=== PATIENT | female | born 1960 | race American Indian/Alaskan Native ===

== ENCOUNTER 2018-12-23 05:08 | Inpatient (IN) | payer MEDICARE ==
--- NOTE | 2018-12-23 06:46 | Emergency Department Report ---
HPI - General Chief Complaint: Medical Clearance Time Seen by Provider: 12/23/18 06:34 - [facility] HPI: Room 24 The patient is a 58-year-old female presented with a chief complaint of tracheostomy tube dislodgment. This morning at 04:00 the patient coughed and her trach came out. Subsequently the patient brought to the ED. Respiratory therapy was called and unable to replace the tracheostomy. Patient denies complaints currently. Patient denies history of fever. Patient states she had a tracheostomy 2 years ago after a CVA Location: Trach Duration: [See above] Quality: [See above] Severity: [See above] Modifying factors: [see above] Context: [see above] Mode of transportation: [not driving] ED Past Medical Hx - Past Medical History Hx Hypertension: Yes Hx CVA: Yes Hx Diabetes: Yes Hx Renal Disease: Yes (Dialysis) - Surgical History Additional Surgical History: Tracheostomy, left AKA - Family History Family history: no significant - Social History Smoking Status: Unknown if ever smoked Substance Use Type: None ED Review of Systems ROS: Stated complaint: REPLACE TRACH Other details as noted in HPI Constitutional: no symptoms reported Eyes: denies: eye pain ENT: denies: throat pain Respiratory: other (tracheostomy tube dislodgment) Cardiovascular: denies: chest pain Endocrine: no symptoms reported Gastrointestinal: denies: abdominal pain Genitourinary: denies: dysuria Musculoskeletal: denies: back pain Neurological: denies: headache Physical Exam - Physical Exam Vital Signs: Vital Signs 12/23/18 05:46 Temperature 97.8 F Pulse Rate 82 Respiratory 14 Rate Blood Pressure 170/82 O2 Sat by Pulse 98 Oximetry Physical Exam: GENERAL: The patient is well-developed well-nourished female lying on stretcher not appearing to be in acute distress. [] HEENT: Normocephalic. Atraumatic. Extraocular motions are intact. Patient has moist mucous membranes. NECK: Supple. Tracheostomy stoma present CHEST/LUNGS: Clear to auscultation. There is no respiratory distress noted. HEART/CARDIOVASCULAR: Regular. There is no tachycardia. There is no gallop rub or murmur. ABDOMEN: Abdomen is soft, nontender. Patient has normal bowel sounds. There is no abdominal distention. SKIN: There is no rash. There is no edema. There is no diaphoresis. NEURO: The patient is awake, alert, and oriented. The patient is cooperative. The patient has normal speech MUSCULOSKELETAL: There is no evidence of acute injury. ED Course Vital Signs 12/23/18 05:46 Temperature 97.8 F Pulse Rate 82 Respiratory 14 Rate Blood Pressure 170/82 O2 Sat by Pulse 98 Oximetry ED Medical Decision Making - Lab Data Result diagrams: 12/23/18 07:00 12/23/18 07:00 Laboratory Tests 12/23/18 12/23/18 07:00 07:00 WBC 11.0 RBC 3.54 L Hgb 9.3 L Hct 27.2 L MCV 77 L MCH 26 L MCHC 34 RDW 18.8 H Plt Count 216 Lymph % (Auto) 27.2 [place] % (Auto) 7.9 H Eos % (Auto) 1.7 Baso % (Auto) 0.8 Lymph # 3.0 [place] # 0.9 H Eos # 0.2 Baso # 0.1 Seg Neutrophils % 62.4 Seg Neutrophils # 6.8 Sodium 139 Potassium 4.9 Chloride 101.3 Carbon Dioxide 18 L Anion Gap 25 BUN 67 H Creatinine 6.6 H Estimated GFR 8 BUN/Creatinine Ratio 10 Glucose 97 Calcium 9.2 - Radiology Data Radiology results: report reviewed (chest x-ray), image reviewed (chest x-ray) interpreted by me: Chest x-ray-left lung peripheral opacity. No pneumothorax [facility] [address] [place] [address] XRay Report Signed Patient: BIJU CEBALLOS MR#: [id number] 35 : 1960 Acct:[id number] Age/Sex: 58 / F ADM Date: 12/23/18 Loc: ED Attending Dr: Ordering Physician: MANASA WYATT MD Date of Service: 12/23/18 Procedure(s): XR chest 1V ap Accession Number(s): [id number] cc: MAANSA WYATT MD Fluoro Time In Minutes: PROCEDURE: XR CHEST 1V AP TECHNIQUE: AP portable chest radiograph HISTORY: cough COMPARISONS: None FINDINGS: Right chest central line terminates near the cavoatrial junction. Patient is rotated. No mediastinal shift. Cardiomegaly. Overlying sternotomy wires. No pneumothorax. Peripheral left lung opacity/pleural thickening. Blunting the left costophrenic angle. IMPRESSION: Focal left lung airspace disease with pleural effusion. PA and lateral chest radiographic follow-up to resolution is suggested. This document is electronically signed by Valentín John MD., December 23 2018 07:15:55 AM ET Transcribed By: PARKER Dictated By: VALENTÍN JOHN MD Electronically Authenticated By: VALENTÍN JOHN MD Signed Date/Time: 12/23/18716 DD/ 4 TD/TT: 12/23/18654 - Differential Diagnosis tracheostomy dislodgment Critical care attestation.: If time is entered above; I have spent that time in minutes in the direct care of this critically ill patient, excluding procedure time. ED Disposition Clinical Impression: Complication of tracheostomy tube, End stage renal disease Disposition: 09 OP ADMIT IP TO THIS HOSP Is pt being admited?: Yes Does the pt Need Aspirin: No Condition: Fair Referrals: KEDAR TSE MD [Primary Care Provider] - 3-5 Days Time of Disposition: 07:36 (hospitalist paged)
[2018-12-23 07:13] LABS: Basophils # (Auto) 0.1 K/mm3 (0.0-0.1); Basophils % (Auto) 0.8 % (0.0-1.8); Eosinophils # (Auto) 0.2 K/mm3 (0.0-0.4); Eosinophils % (Auto) 1.7 % (0.0-4.3); Hematocrit 27.2 % (30.3-42.9); Hemoglobin 9.3 gm/dl (10.1-14.3); Lymphocytes % (Auto) 27.2 % (13.4-35.0); Mean Corpuscular HGB Conc 34 % (30-34); Mean Corpuscular Volume 77 fl (79-97); Monocytes # (Auto) 0.9 K/mm3 (0.0-0.8); Monocytes % (Auto) 7.9 % (0.0-7.3); Platelet Count 216 K/mm3 (140-440); Red Blood Count 3.54 M/mm3 (3.65-5.03); Red Cell Distribution Width 18.8 % (13.2-15.2)
--- NOTE | 2018-12-23 07:17 | XRay Report ---
PROCEDURE: XR CHEST 1V AP TECHNIQUE: AP portable chest radiograph HISTORY: cough COMPARISONS: None FINDINGS: Right chest central line terminates near the cavoatrial junction. Patient is rotated. No mediastinal shift. Cardiomegaly. Overlying sternotomy wires. No pneumothorax. Peripheral left lung opacity/pleura l thickening. Blunting the left costophrenic angle. IMPRESSION: Focal left lung airspace disease with pleural effusion. PA and lateral chest radiographic follow-up t o resolution is suggested. This document is electronically signed by Valentín Jean MD., December 23 2018 07:15:55 AM ET
[2018-12-23 07:28] LABS: Calcium 9.2 mg/dL (8.4-10.2)
--- NOTE | 2018-12-23 09:35 | History and Physical Report ---
History of Present Illness Date of examination: 12/23/18 Date of admission: 12/23/18 Chief complaint: Chief complaint: Tracheostomy tube dislodgment while cleaning. History of present illness: 58 y/o femALE was cleaning tracheostomy today and the tracheostomy dislodged.No resp distress.Past medical history significant for hypertension, controlled, diabetes mellitus type 2 controlled with complications status post left fttaf-afl-[id number] amputation, previous CVA, previous history of pneumonia status post tracheostomy placement, end-stage renal disease on dialysis via a right internal jugular tunnel dialysis access on Wednesday and Wednesday previously on dialysis in [place] recently moved to [facility] to live with her niece. Not in any distress with good airway protection. She denies any orthopnea PND she denies any lower extremity swelling .She has been on dialysis for over 2 years she does not have an arteriovenous graft or fistula yet. She still makes some urine reports she is compliant with dialysis sessions denies any headache Past Medical History Hx Hypertension: Yes Hx CVA: Yes Hx Diabetes: Yes Hx Renal Disease: Yes (Dialysis) Surgical History Additional Surgical History: Tracheostomy, left AKA Family History Family history: no significant Social History Smoking Status: Unknown if ever smoked Substance Use Type: None Review of Systems Constitutional: no weight loss, no weight gain, no fever, no chills Ears, nose, mouth and throat: other (previous tracheostomy), no ear pain, no epistaxis, no voice changes Cardiovascular: no chest pain, no orthopnea Respiratory: cough Gastrointestinal: no abdominal pain, no nausea, no vomiting Musculoskeletal: prior amputations, other ([id number]-[id number] amputation), no hot joints Integumentary: no rash Neurological: no head injury, no transient paralysis Psychiatric: no anxiety, no memory loss Endocrine: no cold intolerance, no heat intolerance Hematologic/Lymphatic: no easy bruising, no easy bleeding, no lymphadenopathy Allergic/Immunologic: no urticaria Medications and Allergies Allergies Allergy/AdvReac Type Severity Reaction Status Date / Time clonidine Allergy Unknown Verified 12/23/18 09:44 Home Medications Medication Instructions Recorded Confirmed Last Taken Type Atorvastatin Calcium 80 mg PO QHS 12/23/18 12/23/18 Unknown History Carvedilol [Coreg] 25 mg PO BID 12/23/18 12/23/18 Unknown History Gabapentin [Neurontin] 100 mg PO QHS 12/23/18 12/23/18 Unknown History Losartan [Cozaar] 50 mg PO QDAY 12/23/18 12/23/18 Unknown History Vit B Comp No.3/Folic/C/Biotin 1 each PO DAILY 12/23/18 12/23/18 Unknown History [Nephro-Talya Rx Tablet] amLODIPine [Norvasc] 5 mg PO DAILY 12/23/18 12/23/18 Unknown History hydrALAZINE [Apresoline TAB] 100 mg PO BID 12/23/18 12/23/18 Unknown History levETIRAcetam [Levetiracetam] 750 mg PO QWEEK 12/23/18 12/23/18 Unknown History Exam - Constitutional Vitals: Temp Pulse Resp BP Pulse Ox 97.8 F 82 14 170/82 98 12/23/18 05:46 12/23/18 05:46 12/23/18 05:46 12/23/18 05:46 12/23/18 05:46 General appearance: Present: no acute distress, well-nourished - EENT Eyes: Present: PERRL ENT: hearing intact, clear oral mucosa - Neck Neck: Present: supple, normal ROM - Respiratory Respiratory effort: normal Respiratory: bilateral: CTA - Cardiovascular Heart rate: 78 Rhythm: regular Heart Sounds: Present: S1 & S2. Absent: rub, click - Extremities Extremities: no ischemia, pulses intact, pulses symmetrical, No edema Extremity abnormal: other (L AKA ) Peripheral Pulses: within normal limits - Abdominal General gastrointestinal: Present: soft, non-tender, non-distended, normal bowel sounds Female genitourinary: Present: normal - Integumentary Integumentary: Present: clear, warm, dry - Musculoskeletal Musculoskeletal: gait normal, strength equal bilaterally - Psychiatric Psychiatric: appropriate mood/affect, intact judgment & insight - Neurologic Neurologic: CNII-XII intact, moves all extremities - Allied Health Allied health notes reviewed: nursing, case management Results - Labs CBC & Chem 7: 12/24/18 04:18 12/24/18 04:18 Labs: Laboratory Last Values WBC 11.0 K/mm3 (4.5-11.0) 12/23/18 07:00 RBC 3.54 M/mm3 (3.65-5.03) L 12/23/18 07:00 Hgb 9.3 gm/dl (10.1-14.3) L 12/23/18 07:00 Hct 27.2 % (30.3-42.9) L 12/23/18 07:00 MCV 77 fl (79-97) L 12/23/18 07:00 MCH 26 pg (28-32) L 12/23/18 07:00 MCHC 34 % (30-34) 12/23/18 07:00 RDW 18.8 % (13.2-15.2) H 12/23/18 07:00 Plt Count 216 K/mm3 (140-440) 12/23/18 07:00 Lymph % (Auto) 27.2 % (13.4-35.0) 12/23/18 07:00 [place] % (Auto) 7.9 % (0.0-7.3) H 12/23/18 07:00 Eos % (Auto) 1.7 % (0.0-4.3) 12/23/18 07:00 Baso % (Auto) 0.8 % (0.0-1.8) 12/23/18 07:00 Lymph # 3.0 K/mm3 (1.2-5.4) 12/23/18 07:00 [place] # 0.9 K/mm3 (0.0-0.8) H 12/23/18 07:00 Eos # 0.2 K/mm3 (0.0-0.4) 12/23/18 07:00 Baso # 0.1 K/mm3 (0.0-0.1) 12/23/18 07:00 Seg Neutrophils % 62.4 % (40.0-70.0) 12/23/18 07:00 Seg Neutrophils # 6.8 K/mm3 (1.8-7.7) 12/23/18 07:00 Sodium 139 mmol/L (137-145) 12/23/18 07:00 Potassium 4.9 mmol/L (3.6-5.0) 12/23/18 07:00 Chloride 101.3 mmol/L (98-107) 12/23/18 07:00 Carbon Dioxide 18 mmol/L (22-30) L 12/23/18 07:00 Anion Gap 25 mmol/L 12/23/18 07:00 BUN 67 mg/dL (7-17) H 12/23/18 07:00 Creatinine 6.6 mg/dL (0.7-1.2) H 12/23/18 07:00 Estimated GFR 8 ml/min 12/23/18 07:00 BUN/Creatinine Ratio 10 % 12/23/18 07:00 Glucose 97 mg/dL (65-100) 12/23/18 07:00 Calcium 9.2 mg/dL (8.4-10.2) 12/23/18 07:00 Short CBC 12/24/18 Range/Units 04:18 WBC 11.5 H (4.5-11.0) K/mm3 Hgb 9.6 L (10.1-14.3) gm/dl Hct 28.0 L (30.3-42.9) % Plt Count 244 (140-440) K/mm3 BMP 12/24/18 04:18 Sodium 140 Potassium 3.9 D Chloride 99.7 Carbon Dioxide 25 D BUN 30 H Creatinine 4.3 H Glucose 97 Calcium 9.6 Liver Function 12/24/18 Range/Units 04:18 Total Bilirubin 0.30 (0.1-1.2) mg/dL AST 21 (5-40) units/L ALT 23 (7-56) units/L Alkaline Phosphatase 164 H (35-129) units/L Albumin 3.8 L (3.9-5) g/dL - Imaging and Cardiology Chest x-ray: report reviewed Imaging and Cardiology: CXR IMPRESSION: Focal left lung airspace disease with pleural effusion. PA and lateral chest radiographic follow-up to resolution is suggested. Assessment and Plan Advance Directives: Yes (full code) VTE prophylaxis?: Chemical Plan of care discussed with patient/family: Yes - Patient Problems (1) Left lower lobe pneumonia Current Visit: Yes Status: Acute Plan to address problem: IV antibiotics ceftriaxone and Zithromax (2) Complication of tracheostomy tube Current Visit: Yes Status: Acute Plan to address problem: Patient may need closure We will get Surgery consult (3) End stage renal disease Current Visit: Yes Status: Chronic Plan to address problem: Continue hemodialysis (4) Hypertension Current Visit: Yes Status: Chronic Qualifiers: Hypertension type: essential hypertension Qualified Code(s): I10 - Essential (primary) hypertension Plan to address problem: Continue antihypertensives (5) T2DM (type 2 diabetes mellitus) Current Visit: Yes Status: Chronic 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
[2018-12-23] MEDS ORDERED: DILAUDID IV PRN (09:36)
[2018-12-23] MEDS ORDERED: SODIUM CHLORIDE FLUSH SYRINGE 10 ML IV PRN (09:36)
[2018-12-23] MEDS ORDERED: ZOFRAN IV PRN (09:36)
[2018-12-23] MEDS ORDERED: TYLENOL PO PRN (11:00)
[2018-12-23] MEDS ORDERED: LEVAQUIN 500MG/100ML 500 MG/100 ML BAG IV SCH (11:00)
[2018-12-23] MEDS ORDERED: PROVENTIL IH PRN (11:00)
[2018-12-23] MEDS: PEPCID PO SCH ×2 (11:28→22:52)
[2018-12-23] MEDS: SODIUM CHLORIDE FLUSH SYRINGE 10 ML IV SCH ×2 (11:28→22:53)
[2018-12-23] MEDS ORDERED: PEPCID ONE (11:33)
[2018-12-23] MEDS ORDERED: LEVAQUIN 500MG/100ML 500 MG/100 ML BAG IV ONE (11:33)
--- NOTE | 2018-12-23 12:32 | Consultation ---
History of Present Illness Consult date: 12/23/18 Requesting physician: ENRIQUE PELAYO Reason for consult: other (Tracheostomy Tube Dislodgement) History of present illness: PULMONARY/CCM CONSULT NOTE (Full dictation # [id number]) Please see dictated notes for full details Medications and Allergies Allergies Allergy/AdvReac Type Severity Reaction Status Date / Time clonidine Allergy Unknown Verified 12/23/18 09:44 Home Medications Medication Instructions Recorded Confirmed Last Taken Type Atorvastatin Calcium 80 mg PO QHS 12/23/18 12/23/18 Unknown History Carvedilol [Coreg] 25 mg PO BID 12/23/18 12/23/18 Unknown History Gabapentin [Neurontin] 100 mg PO QHS 12/23/18 12/23/18 Unknown History Losartan [Cozaar] 50 mg PO QDAY 12/23/18 12/23/18 Unknown History Vit B Comp No.3/Folic/C/Biotin 1 each PO DAILY 12/23/18 12/23/18 Unknown History [Nephro-Talya Rx Tablet] amLODIPine [Norvasc] 5 mg PO DAILY 12/23/18 12/23/18 Unknown History hydrALAZINE [Apresoline TAB] 100 mg PO BID 12/23/18 12/23/18 Unknown History levETIRAcetam [Levetiracetam] 750 mg PO QWEEK 12/23/18 12/23/18 Unknown History Active Meds: Active Medications Acetaminophen (Tylenol) 650 mg PO Q4H PRN PRN Reason: Pain MILD(1-3)/Fever >100.5/REYES Albuterol (Proventil) 2.5 mg IH Q3HRT PRN PRN Reason: Shortness Of Breath Albuterol/Ipratropium (Duoneb *Not For Prn Use*) 1 ampul IH QIDRT JUSTIN Famotidine (Pepcid) 10 mg PO BID JUSTIN Last Admin: 12/23/18 11:28 Dose: 10 mg Documented by: Heparin Sodium (Porcine) (Heparin) 5,000 unit SUB-Q Q12HR JUSTIN Hydromorphone HCl (Dilaudid) 0.5 mg IV Q3H PRN PRN Reason: Pain , Severe (7-10) Levofloxacin/Dextrose (Levaquin 500mg/100ml) 500 mg in 100 mls @ 100 mls/hr IV Q48HR JUSTIN; Protocol Last Admin: 12/23/18 11:30 Dose: 100 mls/hr Documented by: Ondansetron HCl (Zofran) 4 mg IV Q8H PRN PRN Reason: Nausea And Vomiting Sodium Chloride (Sodium Chloride Flush Syringe 10 Ml) 10 ml IV BID [facility] Last Admin: 12/23/18 11:28 Dose: 10 ml Documented by: Sodium Chloride (Sodium Chloride Flush Syringe 10 Ml) 10 ml IV PRN PRN PRN Reason: LINE FLUSH Physical Examination Vital signs: Vital Signs Temp Pulse Resp BP Pulse Ox 97.8 F 82 14 170/82 98 12/23/18 05:46 12/23/18 05:46 12/23/18 05:46 12/23/18 05:46 12/23/18 05:46 Results - Laboratory Findings CBC and BMP: 12/24/18 04:18 12/24/18 04:18 Abnormal lab findings: Abnormal Labs 12/23/18 12/23/18 07:00 07:00 RBC 3.54 L Hgb 9.3 L Hct 27.2 L MCV 77 L MCH 26 L RDW 18.8 H [place] % (Auto) 7.9 H [place] # 0.9 H Carbon Dioxide 18 L BUN 67 H Creatinine 6.6 H
[2018-12-23] MEDS: HEPARIN SUB-Q SCH ×2 (13:00→22:52)
[2018-12-23] MEDS ORDERED: NACL 0.9% 100 ML IV PRN (13:28)
[2018-12-23] MEDS: DUONEB *Not for PRN Use IH SCH ×3 (13:32→20:41)
--- NOTE | 2018-12-23 18:11 | Consultation ---
History of Present Illness - History of Present Illness 58-year-old lady with medical history significant for hypertension, controlled, diabetes mellitus type 2 controlled with complications status post left [id number] amputation, previous CVA, previous history of pneumonia status post tracheostomy placement, end-stage renal disease on dialysis via a right internal jugular tunnel dialysis access on Wednesday and Wednesday previously on dialysis in [place] recently moved to [facility] to live with her niece. She tells me her new dialysis unit is [facility] dialysis. She was cleaning tracheostomy today and the tracheostomy dislodged. She was seen in the emergency room was not in any distress with good airway protection. She denies any orthopnea PND she denies any lower extremity swelling she has been on dialysis for over 2 years she does not have an arteriovenous graft or fistula yet. She still makes some urine reports she is compliant with dialysis sessions denies any headache denies. From any orifice denies any nausea vomiting diarrhea and denies any abdominal pain denies any cough denies any chest pain she denies any fevers or chills Medications and Allergies Allergies Allergy/AdvReac Type Severity Reaction Status Date / Time clonidine Allergy Unknown Verified 12/23/18 09:44 Home Medications Medication Instructions Recorded Confirmed Last Taken Type Atorvastatin Calcium 80 mg PO QHS 12/23/18 12/23/18 Unknown History Carvedilol [Coreg] 25 mg PO BID 12/23/18 12/23/18 Unknown History Gabapentin [Neurontin] 100 mg PO QHS 12/23/18 12/23/18 Unknown History Losartan [Cozaar] 50 mg PO QDAY 12/23/18 12/23/18 Unknown History Vit B Comp No.3/Folic/C/Biotin 1 each PO DAILY 12/23/18 12/23/18 Unknown History [Nephro-Talya Rx Tablet] amLODIPine [Norvasc] 5 mg PO DAILY 12/23/18 12/23/18 Unknown History hydrALAZINE [Apresoline TAB] 100 mg PO BID 12/23/18 12/23/18 Unknown History levETIRAcetam [Levetiracetam] 750 mg PO QWEEK 12/23/18 12/23/18 Unknown History Active Meds: Active Medications Acetaminophen (Tylenol) 650 mg PO Q4H PRN PRN Reason: Pain MILD(1-3)/Fever >100.5/REYES Albuterol (Proventil) 2.5 mg IH Q3HRT PRN PRN Reason: Shortness Of Breath Albuterol/Ipratropium (Duoneb *Not For Prn Use*) 1 ampul IH QIDRT [facility] Last Admin: 12/23/18 17:35 Dose: 1 ampul Documented by: Famotidine (Pepcid) 10 mg PO BID [facility] Last Admin: 12/23/18 11:28 Dose: 10 mg Documented by: Heparin Sodium (Porcine) (Heparin) 5,000 unit SUB-Q Q12HR [facility] Last Admin: 12/23/18 13:00 Dose: Not Given Documented by: Hydromorphone HCl (Dilaudid) 0.5 mg IV Q3H PRN PRN Reason: Pain , Severe (7-10) Levofloxacin/Dextrose (Levaquin 500mg/100ml) 500 mg in 100 mls @ 100 mls/hr IV Q48HR [facility]; Protocol Last Admin: 12/23/18 11:30 Dose: 100 mls/hr Documented by: Sodium Chloride (Nacl 0.9%) 100 mls @ 999 mls/hr IV ANALISA PRN PRN Reason: Hypotension Ondansetron HCl (Zofran) 4 mg IV Q8H PRN PRN Reason: Nausea And Vomiting Sodium Chloride (Sodium Chloride Flush Syringe 10 Ml) 10 ml IV BID [facility] Last Admin: 12/23/18 11:28 Dose: 10 ml Documented by: Sodium Chloride (Sodium Chloride Flush Syringe 10 Ml) 10 ml IV PRN PRN PRN Reason: LINE FLUSH Review of Systems Constitutional: no weight loss, no weight gain, no fever, no chills Ears, nose, mouth and throat: other (previous tracheostomy), no ear pain, no epistaxis, no voice changes Cardiovascular: no chest pain, no orthopnea Respiratory: cough Gastrointestinal: no abdominal pain, no nausea, no vomiting Musculoskeletal: prior amputations, other (ilznh-uch-lddg amputation), no hot joints Integumentary: no rash Neurological: no head injury, no transient paralysis Psychiatric: no anxiety, no memory loss Endocrine: no cold intolerance, no heat intolerance Hematologic/Lymphatic: no easy bruising, no easy bleeding, no lymphadenopathy Allergic/Immunologic: no urticaria Exam - Vital Signs Vital signs: Vital Signs Temp Pulse Resp BP Pulse Ox 97.8 F 82 14 170/82 98 12/23/18 05:46 12/23/18 05:46 12/23/18 05:46 12/23/18 05:46 12/23/18 05:46 - General Appearance General appearance: well-developed, well-nourished EENT: ATNC, PERRL Neck: Present: neck supple, Other (midline opening in neck with clean dressing ) Respiratory: Clear to Ascultation Heart: S1S2 Gastrointestinal: Present: normal, normoactive bowel sounds Integumentary: no rash Neurologic: alert and oriented x3, CN 3-12 intact Musculoskeletal: Present: other (left AKA) Psychiatric: mood/affect appropriate Results - Lab Results 12/23/18 07:00 12/23/18 07:00 Most recent lab results Calcium 9.2 mg/dL (8.4-10.2) 12/23/18 07:00 - Image Kidney/bladder ultrasound: image reviewed (reviewed cxr with interstitial markings dialysis catheter) Assessment and Plan - Patient Problems (1) End stage renal disease Current Visit: Yes Status: Acute Plan to address problem: End stage renal disease Access : Right IJ dialysis catheter -UF goal : 2-3L 2k/2.5ca/35hco3 bath. (2) Complication of tracheostomy tube Current Visit: Yes Status: Acute Plan to address problem: Dislodged tracheostomy tube Appreciate pulmonary evaluation Does not appear dyspneic, she is able to talk in complete sentences (3) Anemia in chronic kidney disease (CKD) Current Visit: Yes Status: Acute Qualifiers: Chronic kidney disease stage: on chronic dialysis Qualified Code(s): N18.6 - End stage renal disease; D63.1 - Anemia in chronic kidney disease; Z99.2 - Dependence on renal dialysis Plan to address problem: Moderate anemia hemoglobin is 9.2, Etiology secondary to chronic kidney disease We'll give Epogen 20,000 units Monitor CBC (4) Hypertension Current Visit: Yes Status: Acute Plan to address problem: Hypertension uncontrolled We'll optimize volume status with dialysis Continue oral medications
[2018-12-23] MEDS ORDERED: PROCRIT IV SCH (19:00)
[2018-12-24 04:47] LABS: Basophils # (Auto) 0.1 K/mm3 (0.0-0.1); Basophils % (Auto) 0.7 % (0.0-1.8); Eosinophils # (Auto) 0.1 K/mm3 (0.0-0.4); Eosinophils % (Auto) 0.8 % (0.0-4.3); Hemoglobin 9.6 gm/dl (10.1-14.3); Lymphocytes % (Auto) 17.8 % (13.4-35.0); Mean Corpuscular HGB Conc 34 % (30-34); Mean Corpuscular Volume 76 fl (79-97); Monocytes # (Auto) 1.1 K/mm3 (0.0-0.8); Monocytes % (Auto) 9.2 % (0.0-7.3); Platelet Count 244 K/mm3 (140-440); Red Cell Distribution Width 18.3 % (13.2-15.2)
[2018-12-24 05:09] LABS: Albumin 3.8 g/dL (3.9-5); Calcium 9.6 mg/dL (8.4-10.2)
[2018-12-24] MEDS: DUONEB *Not for PRN Use IH SCH ×4 (09:10→19:29)
--- NOTE | 2018-12-24 09:39 | Progress Note ---
Subjective Interval history: Patient was seen today for follow-up on multiple renal related issues Events of this hospitalization noted Patient denies having any chest pain pressure or shortness of breath Vitals labs intake output medications were reviewed Social history: Reviewed Allergies: Reviewed Family history: Reviewed Physical examination HEENT: Oral mucosa moist no pallor or icterus Neck: Supple no JVD Chest: Clear to auscultation anteriorly CVS: Regular rate and rhythm S1 and S2 heard Abdomen: Soft nontender no suprapubic masses no organomegaly appreciable Extremity: Dry skin less than 1+ peripheral edema Musculoskeletal: No joint effusion noted in knees and ankle Neurological: Alert awake Dermatology: No petechial rashes Psychiatry: No evidence of any agitation and aggression noted Assessment and plan End-stage renal disease: Patient is currently on maintenance hemodialysis current access is a central venous catheter, patient is visiting from [place] and has recently moved to [place], he supposed to go to [facility] an [address] patient currently does have tracheotomy Patient will continue with hemodialysis treatment 3 times per week Anemia in end-stage renal disease: To monitor and follow, erythropoietin periodically Secondary hyperparathyroidism: Periodically check phosphorus as well as PTH level Monitor dialysis related labs fluid restriction sodium restriction high-protein diet, nutritional evaluation will be helpful Status post [id number] amputation, tracheotomy creation, has had dislodged tracheostomy tube Accelerated hypertension requires better control and follow-up blood pressure is currently 168/91 with heart rate between 90-[address] on hydralazine Patient was adequately counseled and educated regarding multiple renal related issues Pertinent lab findings were discussed with patient, patient does exhibit good understanding of renal issues We'll continue to follow and make recommendation from renal standpoint Objective - Vital Signs Vital signs: Vital Signs - 12hr 12/23/18 12/23/18 12/23/18 21:45 22:00 22:15 Temperature Pulse Rate 100 H 100 H 100 H Respiratory Rate Blood Pressure 135/88 121/82 130/84 12/23/18 12/23/18 22:30 22:45 Temperature 98.4 F Pulse Rate 102 H 95 H Respiratory 18 Rate Blood Pressure 116/82 168/91 - Lab 12/24/18 04:18 12/24/18 04:18 Most recent lab results Calcium 9.6 mg/dL (8.4-10.2) 12/24/18 04:18 Medications & Allergies - Medications Allergies/Adverse Reactions: Allergies clonidine Allergy (Verified 12/23/18 09:44) Unknown Home Medications: Home Medications Medication Instructions Recorded Confirmed Last Taken Type Atorvastatin Calcium 80 mg PO QHS 12/23/18 12/23/18 Unknown History Carvedilol [Coreg] 25 mg PO BID 12/23/18 12/23/18 Unknown History Gabapentin [Neurontin] 100 mg PO QHS 12/23/18 12/23/18 Unknown History Losartan [Cozaar] 50 mg PO QDAY 12/23/18 12/23/18 Unknown History Vit B Comp No.3/Folic/C/Biotin 1 each PO DAILY 12/23/18 12/23/18 Unknown History [Nephro-Talya Rx Tablet] amLODIPine [Norvasc] 5 mg PO DAILY 12/23/18 12/23/18 Unknown History hydrALAZINE [Apresoline TAB] 100 mg PO BID 12/23/18 12/23/18 Unknown History levETIRAcetam [Levetiracetam] 750 mg PO QWEEK 12/23/18 12/23/18 Unknown History Active Medications: Generic Name Dose Route Start Last Admin Trade Name Freq PRN Reason Stop Dose Admin Acetaminophen 650 mg 12/23/18 11:00 Tylenol PO Q4H PRN Pain MILD(1-3)/Fever >100.5/REYES Albuterol 2.5 mg 12/23/18 11:00 Proventil IH Q3HRT PRN Shortness Of Breath Albuterol/Ipratropium 1 ampul 12/23/18 12:00 12/24/18 09:10 Duoneb *Not For Prn Use* IH 1 ampul QIDRT JUSTIN Administration Epoetin Aston 20,000 unit 12/23/18 19:00 12/23/18 20:19 Procrit IV 20,000 unit ANALISA JUSTIN Administration Famotidine 10 mg 12/23/18 10:00 12/23/18 22:52 Pepcid PO 10 mg BID JUSTIN Administration Heparin Sodium (Porcine) 5,000 unit 12/23/18 11:00 12/23/18 22:52 Heparin SUB-Q Not Given Q12HR JUSTIN Hydromorphone HCl 0.5 mg 12/23/18 09:36 Dilaudid IV Q3H PRN Pain , Severe (7-10) Levofloxacin/Dextrose 500 mg in 100 mls @ 100 mls/hr 12/23/18 11:00 12/23/18 11:30 Levaquin 500mg/100ml IV 100 mls/hr Q48HR JUSTIN Administration Protocol Sodium Chloride 100 mls @ 999 mls/hr 12/23/18 13:28 Nacl 0.9% IV ANALISA PRN Hypotension Ondansetron HCl 4 mg 12/23/18 09:36 Zofran IV Q8H PRN Nausea And Vomiting Sodium Chloride 10 ml 12/23/18 10:00 12/23/18 22:53 Sodium Chloride Flush Syringe 10 Ml IV 10 ml BID JUSTIN Administration Sodium Chloride 10 ml 12/23/18 09:36 Sodium Chloride Flush Syringe 10 Ml IV PRN PRN LINE FLUSH
[2018-12-24] MEDS ORDERED: APRESOLINE IV SCH (10:00)
[2018-12-24] MEDS: PEPCID PO SCH ×2 (11:44→21:48)
[2018-12-24] MEDS: SODIUM CHLORIDE FLUSH SYRINGE 10 ML IV SCH ×2 (11:51→21:49)
[2018-12-24] MEDS: HEPARIN SUB-Q SCH ×2 (12:15→21:49)
[2018-12-24] MEDS ORDERED: APRESOLINE PO SCH (13:00)
[2018-12-24] MEDS ORDERED: NORVASC PO SCH (14:00)
[2018-12-24] MEDS ORDERED: NON-FORMULARY (Vit B Comp No.3/Folic/C/Biotin [Nephro-Vite Rx Tablet] 1 EACH) PO SCH (14:00)
--- NOTE | 2018-12-24 14:43 | Progress Note ---
Assessment and Plan Chronic respiratory failure, status post tracheostomy, dislodgement. History of a cerebrovascular accident. Bilateral pulmonary infiltrates, probably pulmonary edema. Possible pneumonia. End-stage renal disease, on dialysis. Diabetes. Hypertension - continue local wound care to tarch stome - aspiration precautions - ST evaluation and advance diet as tolerated - continue bronchodilators with pulmonary hygeine per RT - continue supplemental oxygen as needed to keep O2 sats > 90% - continue empiric AB's - follow cultures and clinically for de-escalation - continue glycemic control with accuchecks and SSI for target BG 140 - 180 mg/dl - HD/UF for toxin and volume clearnce - GI & VTE prophylaxis - continue other care per attending / other consultants ... re-evaluate in am & prn Subjective Date of service: 12/24/18 Principal diagnosis: Chronic Resp failure s/p trach dislodgement; Pneumonia; ESRD on dialysis. Interval history: Patient is seen today for: Chronic respiratory failure, status post tracheostomy, dislodgement; History of a cerebrovascular accident; Bilateral pulmonary infiltrates, probably pulmonary edema; Possible pneumonia; End-stage renal disease, on dialysis. Seen and examined at bedside; 24hour events reviewed; nursing and respiratory care staff consulted; no adverse overnight events reported to me; resting peacefully in bed; feels better; No N/V/F/C; denies acute chest pains or palpitations Objective Vital Signs - 12hr 12/24/18 12/24/18 11:45 13:34 Blood Pressure 184/84 184/84 Constitutional: no acute distress, other (elderly female, normocephalic and atraumatic with mildly increased resp effort at rest) Eyes: non-icteric ENT: oropharynx moist, other (clean trach stoma) Neck: supple, no lymphadenopathy, no JVD Effort: mildly labored Ascultation: Bilateral: diminished breath sounds, rhonchi Percussion: Bilateral: not dull Cardiovascular: regular rate and rhythm Gastrointestinal: normoactive bowel sounds, soft, non-tender, non-distended Integumentary: normal Extremities: no cyanosis, pulses normal, no ischemia or petechiae Neurologic: normal mental status, non-focal exam (grossly), pupils equal and round, CN II-XII normal Psychiatric: mood appropriate, affect normal CBC and BMP: 12/24/18 04:18 12/24/18 04:18 Abnormal lab findings: Abnormal Labs 12/23/18 12/23/18 12/24/18 07:00 07:00 04:18 WBC 11.5 H RBC 3.54 L Hgb 9.3 L 9.6 L Hct 27.2 L 28.0 L MCV 77 L 76 L MCH 26 L 26 L RDW 18.8 H 18.3 H [place] % (Auto) 7.9 H 9.2 H [place] # 0.9 H 1.1 H Seg Neutrophils % 71.5 H Seg Neutrophils # 8.2 H Carbon Dioxide 18 L BUN 67 H Creatinine 6.6 H POC Glucose Alkaline Phosphatase Albumin 12/24/18 12/24/18 04:18 12:41 WBC RBC Hgb Hct MCV MCH RDW [place] % (Auto) [place] # Seg Neutrophils % Seg Neutrophils # Carbon Dioxide BUN 30 H Creatinine 4.3 H POC Glucose 127 H Alkaline Phosphatase 164 H Albumin 3.8 L Chest x-ray: image reviewed (cardiomegaly; right chest vascath) Allied health notes reviewed: nursing
--- NOTE | 2018-12-24 14:51 | Progress Note ---
Assessment and Plan - Patient Problems (1) Left lower lobe pneumonia Current Visit: Yes Status: Acute Plan to address problem: IV antibiotics ceftriaxone and Zithromax (2) Complication of tracheostomy tube Current Visit: Yes Status: Acute Plan to address problem: D/w Dr Sanders Local wound care Waiting for spontaneous closure . (3) End stage renal disease Current Visit: Yes Status: Chronic Plan to address problem: Continue hemodialysis (4) Hypertension Current Visit: Yes Status: Chronic Qualifiers: Hypertension type: essential hypertension Qualified Code(s): I10 - Essential (primary) hypertension Plan to address problem: Continue antihypertensives (5) T2DM (type 2 diabetes mellitus) Current Visit: Yes Status: Chronic Qualifiers: Diabetes mellitus nursing home insulin use: without termite control representative use Plan to address problem: Continue insulin coverage Check hemoglobin A1c (6) CVA, old, hemiparesis Current Visit: Yes Status: Chronic Plan to address problem: Supportive care (7) DVT prophylaxis Current Visit: Yes Status: Acute Plan to address problem: On heparin and GI prophylaxis (8) Discharge planning issues Current Visit: Yes Status: Acute Plan to address problem: Probable discharge tomorrow Subjective Date of service: 12/24/18 Principal diagnosis: L PNA Interval history: Doing better Objective - Constitutional Vitals: Vital Signs - 12hr 12/24/18 12/24/18 12/24/18 11:45 13:34 14:43 Temperature 98.6 F Pulse Rate 75 Respiratory 18 Rate Blood Pressure 184/84 184/84 164/73 O2 Sat by Pulse 96 Oximetry General appearance: Present: no acute distress, well-nourished - EENT Eyes: PERRL, EOM intact ENT: hearing intact, clear oral mucosa Ears: bilateral: normal - Neck Neck: supple, normal ROM - Respiratory Respiratory effort: normal Respiratory: bilateral: CTA - Breasts Breasts: normal - Cardiovascular Heart rate: 78 Rhythm: regular Heart Sounds: Present: S1 & S2. Absent: gallop, rub Extremities: pulses intact, No edema, normal color, Full ROM - Gastrointestinal General gastrointestinal: Present: soft, non-tender, non-distended, normal bowel sounds - Genitourinary Female genitourinary: normal - Integumentary Integumentary: clear, warm, dry - Musculoskeletal Musculoskeletal: 1, strength equal bilaterally - Neurologic Neurologic: moves all extremities - Psychiatric Psychiatric: memory intact, appropriate mood/affect, intact judgment & insight - Labs CBC & Chem 7: 12/24/18 04:18 12/24/18 04:18 Labs: Abnormal lab results 12/24/18 12/24/18 12/24/18 Range/Units 04:18 04:18 12:41 WBC 11.5 H (4.5-11.0) K/mm3 Hgb 9.6 L (10.1-14.3) gm/dl Hct 28.0 L (30.3-42.9) % MCV 76 L (79-97) fl MCH 26 L (28-32) pg RDW 18.3 H (13.2-15.2) % Patrick % (Auto) 9.2 H (0.0-7.3) % Patrick # 1.1 H (0.0-0.8) K/mm3 Seg Neutrophils % 71.5 H (40.0-70.0) % Seg Neutrophils # 8.2 H (1.8-7.7) K/mm3 BUN 30 H (7-17) mg/dL Creatinine 4.3 H (0.7-1.2) mg/dL POC Glucose 127 H (70-105) Alkaline Phosphatase 164 H (35-129) units/L Albumin 3.8 L (3.9-5) g/dL
[2018-12-24] MEDS: APRESOLINE PO SCH ×2 (14:54→21:48)
[2018-12-24] MEDS ORDERED: ROCEPHIN/NS 1 GM/50 ML 1 GM/50 ML BAG IV SCH (15:00)
[2018-12-24 15:09] LABS: Hepatitis B Surface Antigen Non-Reactive (Negative); Hepatitis C Virus Antibody Reactive (NonReactive)
[2018-12-24] MEDS: COREG PO SCH ×2 (17:13→21:48)
[2018-12-24] MEDS: ZITHROMAX PO SCH (17:14)
[2018-12-24] MEDS: COZAAR PO SCH (17:19)
[2018-12-24] MEDS: HumaLOG SUB-Q SCH ×2 (17:20→23:13)
[2018-12-24] MEDS ORDERED: XYLOCAINE 1% MPF 5 mL INFILTRATI ONE (17:58)
--- NOTE | 2018-12-24 21:30 | Consultation ---
PULMONARY CONSULTATION NOTE CONSULTING PHYSICIAN: Sia Lombardi MD REASON FOR CONSULTATION: Tracheostomy tube dislodgement, acute hypoxemic respiratory failure. CHIEF COMPLAINT AND HISTORY OF PRESENT ILLNESS: The patient is a 58-year-old -Samoan female with past medical history significant for tracheostomy that she states was placed about a couple of years ago after a cerebrovascular accident complicated with pneumonia. She states that in retrospect, the tracheostomy was planned to be removed in a few weeks. According to her, she does not remember the name of the physician and was trying to do that. She was brought into the Emergency Room after the patient said that the area around her trach was being cleaned by staff member. She had coughed and the trach came out. They did not know how to put it back in. By the time she came into the Emergency Room, she was found that the stoma had been closing and they were unable to replace. We are asked to assist with management. When I stopped by to see her, she was resting in bed. She denied any acute chest pain. She denied any shortness of breath, dyspnea on exertion. She stated that she had been eating meals, even when she had her tracheostomy in place, but could not tell me if they were actually kept in the trach prior to her being decannulated. With regards to tobacco use/abuse history, she denies any history of tobacco use. This really is as much of the history of presentation as I have. PAST MEDICAL HISTORY: Diabetes, hypertension, cerebrovascular accident, and history of end-stage renal disease, reportedly on dialysis. PAST SURGICAL HISTORY: She has had a tracheostomy and she has had a left [id number] amputation. MEDICATIONS: She was on at the time I stopped by to see were reviewed. Pertinent medications included the following: She was on Procrit 20,000 units IV with dialysis scheduled, Pepcid 10 mg p.o. b.i.d., heparin 5000 units subQ q.12, Dilaudid 0.5 mg IV q 3hours p.r.n. severe pain, Levaquin 500 mg IV q.48 hours, Zofran 4 mg IV q. 8 hours p.r.n. nausea and vomiting. ALLERGIES: CLONIDINE. Nature of this allergy is unknown. DIET: Well-built lady, denies acute weight loss or gain preceding few weeks to months. FAMILY AND SOCIAL HISTORY: She lives in the community. Denies alcohol, tobacco, or illicit drug use or abuse. Family history, otherwise noncontributory. REVIEW OF SYSTEMS: No loss of consciousness. No new onset seizures. No new onset focal weakness. No gross hematochezia or melena. No gross hematuria or dysuria. She denies chest pains or palpitations. She denies hematemesis, hemoptysis. No polydipsia, no polyuria. No heat or cold intolerance. Complete 13-system review of systems was obtained. Pertinent positives and/or negatives as in the body of the history above, otherwise noncontributory. PHYSICAL EXAMINATION: VITAL SIGNS: At presentation, she is afebrile, temperature 97.8 degrees Fahrenheit, pulse of 82, respiratory rate of 14, blood pressure 170/82, oxygen sats were 98%, inspired oxygen concentration was not recorded at that time. By the time I saw her, she was 97% on room air. GENERAL: She is a well-built -Samoan female, normocephalic, talking to me in full sentences without overt respiratory distress. HEAD, EYES, EARS, NOSE, AND THROAT: She is anicteric. No conjunctival erythema. Oropharynx is moist, is a Mallampati #2 oropharynx. She has a clean tracheostomy stoma that has indeed closed in the midline of the neck. No obvious bleeding or exudation around it. No thyromegaly. Grossly, no palpable lymph nodes in the supraclavicular or submandibular lymph node chains. No jugular venous distention. LUNGS: Auscultation of both lung ambrosio revealed faint inspiratory crackles in the left lower lung, in particular, no wheezing. HEART: Heart sounds 1 and 2 were heard. They were regular in rate and rhythm at the time of my evaluation, without rubs or murmurs. ABDOMEN: Soft, full, bowel sounds are positive, nontender, no palpable hepatosplenomegaly. EXTREMITIES: Without overt digital clubbing, no cyanosis, no pedal edema. She has a left above the knee amputation. Dorsalis pedis pulses palpable. NEUROLOGIC: Pupils equal, round, about 4 mm, reactive to light. Extraocular muscle movements are intact. She moves all 4 extremities spontaneously. No fasciculations. No rashes. SKIN: Normal turgor without overt cellulitis or rash. LABORATORY DATA: From my review are as follows: White cell count 11,000, hemoglobin 9.3, hematocrit 27.2, platelet count 216. Serum sodium 139, potassium 4.9, chloride 101, bicarbonate 18, BUN 67, creatinine 6.6, and glucose was 97. No microbiology studies. Chest x-ray has been reviewed. She has a right IJ or subclavian, looks more like a subclavian Vas-Cath in place. Median sternotomy wires are also in place and intact. There is cardiomegaly. The film is slightly rotated to the left, slight increase in interstitial markings in the bases, quite possibly mild interstitial edema. I cannot rule out an element of pneumonia. No gross pneumothorax, no gross bony fractures that I can see. She may have a small pleural effusion on the left or left lower lobe partial atelectasis. ASSESSMENT AND PLAN: 1. Chronic respiratory failure, status post tracheostomy, dislodgement. 2. History of a cerebrovascular accident. 3. Bilateral pulmonary infiltrates, probably pulmonary edema. 4. Possible pneumonia. 5. End-stage renal disease, on dialysis. 6. Diabetes. 7. Hypertension. PLAN: She is doing pretty well. Her story also is encouraging with regards to the plan to decannulate her prior to inadvertent dislodgement. Continue local wound care to the trach stoma, supplemental oxygen as needed, swallow evaluation and advance diet as necessary. Continue empiric Levaquin, monotherapy. I will order a CRP level; if that is normal, I do suggest we can discontinue Levaquin. Continue hemodialysis with ultrafiltration for toxin and volume control. Physical therapy, occupational therapy as necessary. Continue her chronic disease medications including oral antihypertensive agents, which I believe will soon be scheduled. Otherwise, she is appropriately on GI and DVT prophylaxis. Flu and pneumonia vaccination will be addressed per protocol. We will follow along and watch her overnight to make sure that she continues to not have any acute respiratory decompensation. Thank you very much for the consult. We will follow along. We will make further recommendations as picture progresses/becomes clearer. She has been instructed to follow up with her outpatient ENT physician, who was planning to decannulate her. JOB# [id number] GEOVANNA/KENDAL GOMEZ
[2018-12-24] MEDS ORDERED: NEURONTIN PO SCH (22:00)
[2018-12-24] MEDS: ROCEPHIN IM SCH (22:02)
[2018-12-25] MEDS: DUONEB *Not for PRN Use IH SCH ×2 (07:48→12:05)
[2018-12-25] MEDS: HumaLOG SUB-Q SCH ×2 (09:06→14:22)
[2018-12-25] MEDS ORDERED: Renal Caps PO SCH (10:00)
[2018-12-25] MEDS ORDERED: NORVASC PO SCH (10:42)
--- NOTE | 2018-12-25 10:42 | Progress Note ---
Subjective Principal diagnosis: L PNA Interval history: Patient was seen today for follow-up on multiple renal related issues Events of this hospitalization noted Dialyzed yesterday without any problems Patient denies having any chest pain pressure or shortness of breath Vitals labs intake output medications were reviewed Social history: Reviewed Allergies: Reviewed Family history: Reviewed Physical examination HEENT: Oral mucosa moist no pallor or icterus Neck: Supple no JVD Chest: Clear to auscultation anteriorly CVS: Regular rate and rhythm S1 and S2 heard Abdomen: Soft nontender no suprapubic masses no organomegaly appreciable Extremity: Dry skin less than 1+ peripheral edema Musculoskeletal: No joint effusion noted in knees and ankle Neurological: Alert awake Dermatology: No petechial rashes Psychiatry: No evidence of any agitation and aggression noted Assessment and plan End-stage renal disease: Continue with hemodialysis treatment 3 times a week We'll change the prescription blood flow 350 dialysate flow rate 700 ultrafiltration 1-2 kg Patient will need hemodialysis Wednesday Patient seems to be tolerating treatment well without any problems Metabolic acidosis currently doing better Accelerated hypertension requires better control and follow-up increase amlodipine to 10 mg daily, Noted to have left lower lobe pneumonia currently an antibiotic Follow-up on the pending labs Anemia in end-stage renal disease: To monitor and follow, erythropoietin periodically Secondary hyperparathyroidism: Periodically check phosphorus as well as PTH level Monitor dialysis related labs fluid restriction sodium restriction high-protein diet, nutritional evaluation will be helpful Status post [id number] amputation, tracheotomy creation, has had dislodged tracheostomy tube Patient was adequately counseled and educated regarding multiple renal related issues Pertinent lab findings were discussed with patient, patient does exhibit good understanding of renal issues We'll continue to follow and make recommendation from renal standpoint Objective - Vital Signs Vital signs: Vital Signs - 12hr 12/24/18 12/24/18 12/25/18 21:48 22:41 06:35 Temperature 98.8 F 98.2 F Pulse Rate 87 90 64 Pulse Rate [ Anterior Bilateral Throughout] Respiratory 20 20 Rate Respiratory Rate [Anterior Bilateral Throughout] Blood Pressure 144/75 150/73 174/73 O2 Sat by Pulse 91 98 Oximetry 12/25/18 12/25/18 07:48 07:58 Temperature Pulse Rate Pulse Rate [ 80 81 Anterior Bilateral Throughout] Respiratory Rate Respiratory 18 18 Rate [Anterior Bilateral Throughout] Blood Pressure O2 Sat by Pulse Oximetry - Lab 12/24/18 04:18 12/24/18 04:18 Most recent lab results Calcium 9.6 mg/dL (8.4-10.2) 12/24/18 04:18 Medications & Allergies - Medications Allergies/Adverse Reactions: Allergies clonidine Allergy (Verified 12/23/18 09:44) Unknown Home Medications: Home Medications Medication Instructions Recorded Confirmed Last Taken Type Atorvastatin Calcium 80 mg PO QHS 12/23/18 12/23/18 Unknown History Carvedilol [Coreg] 25 mg PO BID 12/23/18 12/23/18 Unknown History Gabapentin [Neurontin] 100 mg PO QHS 12/23/18 12/23/18 Unknown History Losartan [Cozaar] 50 mg PO QDAY 12/23/18 12/23/18 Unknown History Vit B Comp No.3/Folic/C/Biotin 1 each PO DAILY 12/23/18 12/23/18 Unknown History [Nephro-Talya Rx Tablet] amLODIPine [Norvasc] 5 mg PO DAILY 12/23/18 12/23/18 Unknown History hydrALAZINE [Apresoline TAB] 100 mg PO BID 12/23/18 12/23/18 Unknown History levETIRAcetam [Levetiracetam] 750 mg PO QWEEK 12/23/18 12/23/18 Unknown History Active Medications: Generic Name Dose Route Start Last Admin Trade Name Freq PRN Reason Stop Dose Admin Acetaminophen 650 mg 12/23/18 11:00 Tylenol PO Q4H PRN Pain MILD(1-3)/Fever >100.5/REYES Albuterol 2.5 mg 12/23/18 11:00 Proventil IH Q3HRT PRN Shortness Of Breath Albuterol/Ipratropium 1 ampul 12/23/18 12:00 12/25/18 07:48 Duoneb *Not For Prn Use* IH 1 ampul QIDRT JUSTIN Administration Amlodipine Besylate 5 mg 12/24/18 14:00 12/24/18 17:14 Norvasc PO 5 mg DAILY JUSTIN Administration Atorvastatin Calcium 80 mg 12/24/18 22:00 12/24/18 21:48 Lipitor PO 80 mg QHS JUSTIN Administration Azithromycin 500 mg 12/24/18 15:00 12/24/18 17:14 Zithromax PO 500 mg QDAY JUSTIN Administration Carvedilol 25 mg 12/24/18 14:00 12/24/18 21:48 Coreg PO 25 mg BID [facility] Administration Ceftriaxone Sodium 1 gm 12/24/18 19:00 12/24/18 22:02 Rocephin IM Not Given Q24HR [facility] Protocol Epoetin Aston 20,000 unit 12/23/18 19:00 12/23/18 20:19 Procrit IV 20,000 unit ANALIAS [facility] Administration Famotidine 10 mg 12/23/18 10:00 12/24/18 21:48 Pepcid PO 10 mg BID [facility] Administration Gabapentin 100 mg 12/24/18 22:00 12/24/18 21:48 Neurontin PO 100 mg QHS [facility] Administration Heparin Sodium (Porcine) 5,000 unit 12/23/18 11:00 12/24/18 21:49 Heparin SUB-Q 5,000 unit Q12HR [facility] Administration Hydralazine HCl 100 mg 12/24/18 14:00 12/24/18 21:48 Apresoline PO 100 mg BID [facility] Administration Hydromorphone HCl 0.5 mg 12/23/18 09:36 Dilaudid IV Q3H PRN Pain , Severe (7-10) Sodium Chloride 100 mls @ 999 mls/hr 12/23/18 13:28 Nacl 0.9% IV ANALISA PRN Hypotension Insulin Human Lispro 0 unit 12/24/18 16:30 12/25/18 09:06 Humalog SUB-Q Not Given ACHS [facility] Protocol Losartan Potassium 50 mg 12/24/18 14:00 12/24/18 17:19 Cozaar PO 50 mg QDAY [facility] Administration Multivit/Ca Carb/B Cmplx/FA/Prenat 1 cap 12/25/18 10:00 Renal Caps PO QDAY [facility] Ondansetron HCl 4 mg 12/23/18 09:36 Zofran IV Q8H PRN Nausea And Vomiting Sodium Chloride 10 ml 12/23/18 10:00 12/24/18 21:49 Sodium Chloride Flush Syringe 10 Ml IV Not Given BID JUSTIN Sodium Chloride 10 ml 12/23/18 09:36 Sodium Chloride Flush Syringe 10 Ml IV PRN PRN LINE FLUSH
[2018-12-25] MEDS: ROCEPHIN IM SCH (10:48)
[2018-12-25] MEDS: PEPCID PO SCH (10:49)
[2018-12-25] MEDS: ZITHROMAX PO SCH (10:50)
[2018-12-25] MEDS: COREG PO SCH (10:50)
[2018-12-25] MEDS: HEPARIN SUB-Q SCH (11:07)
[2018-12-25] MEDS: APRESOLINE PO SCH (11:08)
[2018-12-25] MEDS: SODIUM CHLORIDE FLUSH SYRINGE 10 ML IV SCH (11:08)
[2018-12-25] MEDS: COZAAR PO SCH (11:09)
--- NOTE | 2018-12-25 11:11 | Discharge Summary ---
Providers - Providers Date of Admission: 12/23/18 09:36 Date of discharge: 12/25/18 Attending physician: ENRIQUE PELAYO 12/23/18 09:36 Consult to Physician [CONS] Routine Comment: Consulting Provider: JULIO CESAR NORRIS Physician Instructions: CLD OFC 0953 TO ADV OF CONSULT SPK W/RHIANNON Reason For Exam: ESRD 12/23/18 09:38 Consult to Physician [CONS] Routine Comment: CLD OFC 0959 LFT MSSG & ADVD OF CONSULT Consulting Provider: EDNA VILA Physician Instructions: Reason For Exam: Trach management--Closure??? 12/23/18 10:37 Consult to Physician [CONS] Routine Comment: Consulting Provider: EVANGELINA WILKINSON Physician Instructions: Reason For Exam: Trach-management/closure [facility] Condition: Fair Hospital course: Patient Problems (1) Left lower lobe pneumonia Current Visit: Yes Status: Acute Plan to address problem: Levaquin 500 mg po q48 (2) Complication of tracheostomy tube Current Visit: Yes Status: Acute Plan to address problem: D/w Dr Sanders Local wound care Waiting for spontaneous closure . F/u with pulmonology (3) End stage renal disease Current Visit: Yes Status: Chronic Plan to address problem: Continue hemodialysis (4) Hypertension Current Visit: Yes Status: Chronic Qualifiers: Hypertension type: essential hypertension Qualified Code(s): I10 - Essential (primary) hypertension Plan to address problem: Continue antihypertensives (5) T2DM (type 2 diabetes mellitus) Current Visit: Yes Status: Chronic Qualifiers: Diabetes mellitus nursing home insulin use: without nursing home use Plan to address problem: Continue insulin (6) CVA, old, hemiparesis Current Visit: Yes Status: Chronic Plan to address problem: Supportive care Disposition: DC-01 TO HOME OR SELFCARE Core Measure Documentation - Palliative Care Palliative Care/ Comfort Measures: Not Applicable - Core Measures Any of the following diagnoses?: none Exam - Constitutional Vitals: Temp Pulse Resp BP Pulse Ox 98.2 F 81 18 154/66 98 12/25/18 06:35 12/25/18 07:58 12/25/18 07:58 12/25/18 10:50 12/25/18 06:35 General appearance: Present: no acute distress, well-nourished - EENT Eyes: Present: PERRL ENT: hearing intact, clear oral mucosa - Neck Neck: Present: supple, normal ROM - Respiratory Respiratory effort: normal Respiratory: bilateral: CTA - Cardiovascular Heart rate: 78 Rhythm: regular Heart Sounds: Present: S1 & S2. Absent: rub, click - Extremities Extremities: no ischemia, pulses intact, pulses symmetrical, No edema Peripheral Pulses: within normal limits - Abdominal General gastrointestinal: Present: soft, non-tender, non-distended, normal bowel sounds Female genitourinary: Present: normal - Rectal Rectal Exam: deferred - Integumentary Integumentary: Present: clear, warm, dry - Musculoskeletal Musculoskeletal: gait normal, strength equal bilaterally - Psychiatric Psychiatric: appropriate mood/affect, intact judgment & insight - Neurologic Neurologic: CNII-XII intact, moves all extremities - Allied Health Allied health notes reviewed: nursing, case management Plan Activity: no restrictions Diet: low fat, low cholesterol, low salt Follow up with: [facility] [Primary Care Provider] - 3-5 Days EDNA VILA MD [Staff Physician] - 7 Days JULIO CESAR NORRIS MD [Staff Physician] - 7 Days
[2018-12-25 12:33] VITALS: BP 146/72
--- NOTE | 2018-12-25 13:36 | Progress Note ---
Assessment and Plan Patient awake. Resting on room air. No complaint of chest pain, shortness of breath and cough.O2 saturation 98%. Patient Decanulated during this admission.Trach site looks OK. Recommend to clean the site with betadiane or alcohol for other week or two. Patient said she may go home to day. Recommend to come to office in one week for pulmonary faollow up. - Patient Problems (1) Pneumonia Current Visit: Yes Status: Acute Plan to address problem: Patient is on zithromax and ceftrioxone. (2) Pleural effusion, left Current Visit: Yes Status: Acute Plan to address problem: Recommend to repeat chest xray. after treating with antibiotics. If still suspicious for pleural effusion, recommend ultrasound of chest. Subjective Date of service: 12/25/18 Principal diagnosis: L PNA Interval history: Patient awake. Resting on room air. No complaint of chest pain, shortness of breath and cough.O2 saturation 98%. Patient Decanulated during this admission. Trach site looks OK. Recommend to clean the site with betadiane or alcohol for other week or two. Patient said she may go home to day. Recommend to come to office in one week for pulmonary faollow up. Objective Vital Signs - 12hr 12/25/18 12/25/18 12/25/18 06:35 07:48 07:58 Temperature 98.2 F Pulse Rate 64 Pulse Rate [ 80 81 Anterior Bilateral Throughout] Respiratory 20 Rate Respiratory 18 18 Rate [Anterior Bilateral Throughout] Blood Pressure 174/73 O2 Sat by Pulse 98 Oximetry 12/25/18 12/25/18 12/25/18 10:50 11:09 12:05 Temperature Pulse Rate Pulse Rate [ 72 Anterior Bilateral Throughout] Respiratory Rate Respiratory 20 Rate [Anterior Bilateral Throughout] Blood Pressure 154/66 154/66 O2 Sat by Pulse Oximetry 12/25/18 12:32 Temperature Pulse Rate 86 Pulse Rate [ Anterior Bilateral Throughout] Respiratory Rate Respiratory Rate [Anterior Bilateral Throughout] Blood Pressure 146/72 O2 Sat by Pulse Oximetry Constitutional: no acute distress, alert Eyes: non-icteric ENT: oropharynx moist Neck: supple, no lymphadenopathy Ascultation: Left: diminished breath sounds Cardiovascular: regular rate and rhythm Gastrointestinal: normoactive bowel sounds, soft, non-tender Integumentary: normal Extremities: other (Ambutation above the knee left leg.) CBC and BMP: 12/24/18 04:18 03/09/19 04:18 Abnormal lab findings: Abnormal Labs 12/23/18 12/23/18 12/24/18 07:00 07:00 04:18 WBC 11.5 H RBC 3.54 L Hgb 9.3 L 9.6 L Hct 27.2 L 28.0 L MCV 77 L 76 L MCH 26 L 26 L RDW 18.8 H 18.3 H [place] % (Auto) 7.9 H 9.2 H [place] # 0.9 H 1.1 H Seg Neutrophils % 71.5 H Seg Neutrophils # 8.2 H Carbon Dioxide 18 L BUN 67 H Creatinine 6.6 H POC Glucose Alkaline Phosphatase Albumin Hepatitis C Antibody 12/24/18 12/24/18 12/24/18 04:18 12:41 14:02 WBC RBC Hgb Hct MCV MCH RDW [place] % (Auto) [place] # Seg Neutrophils % Seg Neutrophils # Carbon Dioxide BUN 30 H Creatinine 4.3 H POC Glucose 127 H Alkaline Phosphatase 164 H Albumin 3.8 L Hepatitis C Antibody Reactive A 12/24/18 12/24/18 16:27 22:02 WBC RBC Hgb Hct MCV MCH RDW [place] % (Auto) [place] # Seg Neutrophils % Seg Neutrophils # Carbon Dioxide BUN Creatinine POC Glucose 119 H 152 H Alkaline Phosphatase Albumin Hepatitis C Antibody Chest x-ray: report reviewed (Left lung air space disease and pleural effusion.), image reviewed
== END 2018-12-25 15:10 | disposition home health service (06) | DRG 205 ==
LOC: ED 05:08 → 3A 09:36
PROVIDERS: ADMIT Internal Medicine; ATTEND Internal Medicine
PROC: 5A1D70Z Performance of Urinary Filtration, Intermittent, Less than 6 Hours Per Day (ICD-10-PCS; principal; 2018-12-23)
DX: J95.03 Malfunction of tracheostomy stoma (principal); N18.6 End stage renal disease; J18.1 Lobar pneumonia, unspecified organism; I12.0 Hypertensive chronic kidney disease with stage 5 chronic kidney disease or end stage renal disease; I69.359 Hemiplegia and hemiparesis following cerebral infarction affecting unspecified side; E87.2 Acidosis; N25.81 Secondary hyperparathyroidism of renal origin; J96.10 Chronic respiratory failure, unspecified whether with hypoxia or hypercapnia; E11.22 Type 2 diabetes mellitus with diabetic chronic kidney disease; D63.1 Anemia in chronic kidney disease; Y83.8 Other surgical procedures as the cause of abnormal reaction of the patient, or of later complication, without mention of misadventure at the time of the procedure; Y82.8 Other medical devices associated with adverse incidents; Z79.899 Other long term (current) drug therapy; Z89.612 Acquired absence of left leg above knee; Z99.2 Dependence on renal dialysis
CPT/HCPCS: 36415; 71045; 80048; 80053; 80074; 82962; 83036; 85025; 94640; 96374; G0378; A9270-GY; J0360; J0696; J0885; J1644; J1815; J1956

== ENCOUNTER 2018-12-26 19:23 | Emergency (ER) | payer MEDICARE ==
--- NOTE | 2018-12-26 19:32 | Emergency Department Report ---
Blank Doc - Documentation Documentation: This is a 58-year-old female that presents with neck pain, back pain and leg p ain. Stated that symptoms started after dialysis. This initial assessment/diagnostic orders/clinical plan/treatment(s) is/are subject to change based on patient's health status, clinical progression and re- assessment by fellow clinical providers in the ED. Further treatment and workup at subsequent clinical providers discretion. Patient/guardians urged not to elope from the ED as their condition may be serious if not clinically assessed and managed. Initial orders include: 1- Patient sent to MAIN ED for further evaluation and treatment 2- Labs
[2018-12-26 20:02] LABS: Basophils # (Auto) 0.1 K/mm3 (0.0-0.1); Basophils % (Auto) 0.5 % (0.0-1.8); Eosinophils # (Auto) 0.2 K/mm3 (0.0-0.4); Eosinophils % (Auto) 1.4 % (0.0-4.3); Hemoglobin 11.1 gm/dl (10.1-14.3); Lymphocytes # (Auto) 2.2 K/mm3 (1.2-5.4); Mean Corpuscular HGB Conc 34 % (30-34); Mean Corpuscular Volume 79 fl (79-97); Monocytes % (Auto) 9.4 % (0.0-7.3); Platelet Count 260 K/mm3 (140-440); Red Blood Count 4.17 M/mm3 (3.65-5.03); Red Cell Distribution Width 18.7 % (13.2-15.2)
[2018-12-26 20:20] LABS: Alanine Aminotransferase 20 units/L (7-56); Albumin 4.2 g/dL (3.9-5); BUN/Creatinine Ratio 7; Blood Urea Nitrogen 32 mg/dL (7-17); Calcium 9.7 mg/dL (8.4-10.2); Hemolysis Index 28
[2018-12-26 20:24] LABS: Bilirubin,Direct < 0.2 mg/dL (0-0.2)
[2018-12-26 20:46] VITALS: BP 129/76
--- NOTE | 2018-12-26 21:04 | Emergency Department Report ---
ED General Adult HPI - General Chief complaint: Pain General Stated complaint: NECK BACK AND LEG PAIN Time Seen by Provider: 12/26/18 19:30 Source: patient Mode of arrival: Wheelchair Limitations: No Limitations - History of Present Illness Initial comments: Patient is 58 years old female with history of end-stage renal disease on hemodialysis. Patient just had dialysis today. Patient was recently discharged from the hospital for pneumonia. Patient brought to the emergency room accompanied by her daughter stating that she is complaining of neck and lower back and left stump pain started today. Patient denied any fever, chills, nausea or vomiting. No chest pain, shortness of breath or cough. Patient is alert, oriented 4 in no acute distress. Severity scale (0 -10): 8 - Related Data Home Medications Medication Instructions Recorded Confirmed Last Taken Vit B Comp No.3/Folic/C/Biotin 1 each PO DAILY 12/23/18 12/23/18 Unknown [Nephro-Talya Rx Tablet] Previous Rx's Medication Instructions Recorded Last Taken Type ALBUTEROL NEB's [Proventil 0.083% 2.5 mg IH Q3HRT PRN #100 nebu 12/25/18 Unknown Rx NEBS] AtorvaSTATin [Lipitor] 80 mg PO QHS #30 tablet 12/25/18 Unknown Rx Carvedilol [Coreg] 25 mg PO BID #60 tablet 12/25/18 Unknown Rx Famotidine [Pepcid] 10 mg PO BID #60 tablet 12/25/18 Unknown Rx Gabapentin [Neurontin] 100 mg PO QHS #30 capsule 12/25/18 Unknown Rx Ipratropium/Albuterol Sulfate 1 ampul IH QIDRT #50 ampul.neb 12/25/18 Unknown Rx [DUONEB *Not for PRN Use*] Lispro Insulin [Humalog] 5 unit SUB-Q ACHS #1 vial 12/25/18 Unknown Rx Losartan [Cozaar] 50 mg PO QDAY #30 tablet 12/25/18 Unknown Rx amLODIPine [Norvasc] 10 mg PO DAILY #30 tablet 12/25/18 Unknown Rx hydrALAZINE [Apresoline TAB] 100 mg PO BID #60 tab 12/25/18 Unknown Rx levoFLOXacin [Levaquin TAB] 500 mg PO QDAY #5 tablet 12/25/18 Unknown Rx HYDROcodone/APAP 5-325 [Bonesteel 1 each PO Q6HR PRN #14 tablet 12/26/18 Unknown Rx 5/325] Ondansetron [Zofran Odt] 4 mg PO Q8HR PRN #14 tab.rapdis 12/26/18 Unknown Rx Allergies Allergy/AdvReac Type Severity Reaction Status Date / Time clonidine Allergy Unknown Verified 12/23/18 09:44 ED Review of Systems ROS: Stated complaint: NECK BACK AND LEG PAIN Other details as noted in HPI Comment: All other systems reviewed and negative Constitutional: denies: chills, fever ENT: denies: ear pain Respiratory: denies: cough, orthopnea, shortness of breath, SOB with exertion, SOB at rest Cardiovascular: denies: chest pain, palpitations Gastrointestinal: denies: abdominal pain, nausea, vomiting, diarrhea Musculoskeletal: denies: back pain Neurological: denies: headache, weakness, numbness, paresthesias ED Past Medical Hx - Past Medical History Previous Medical History?: Yes Hx Hypertension: Yes Hx CVA: Yes Hx Diabetes: Yes Hx Renal Disease: Yes (Dialysis mwf) Additional medical history: Tracheostomy, left AKA - Surgical History Past Surgical History?: Yes Hx Open Heart Surgery: Yes (triple bypass) Additional Surgical History: Tracheostomy, left AKA - Social History Smoking Status: Never Smoker Substance Use Type: None - Medications Home Medications: Home Medications Medication Instructions Recorded Confirmed Last Taken Type Vit B Comp No.3/Folic/C/Biotin 1 each PO DAILY 12/23/18 12/23/18 Unknown History [Nephro-Talya Rx Tablet] ALBUTEROL NEB's [Proventil 0.083% 2.5 mg IH Q3HRT PRN #100 nebu 12/25/18 Unknown Rx NEBS] AtorvaSTATin [Lipitor] 80 mg PO QHS #30 tablet 12/25/18 Unknown Rx Carvedilol [Coreg] 25 mg PO BID #60 tablet 12/25/18 Unknown Rx Famotidine [Pepcid] 10 mg PO BID #60 tablet 12/25/18 Unknown Rx Gabapentin [Neurontin] 100 mg PO QHS #30 capsule 12/25/18 Unknown Rx Ipratropium/Albuterol Sulfate 1 ampul IH QIDRT #50 ampul.neb 12/25/18 Unknown Rx [DUONEB *Not for PRN Use*] Lispro Insulin [Humalog] 5 unit SUB-Q ACHS #1 vial 12/25/18 Unknown Rx Losartan [Cozaar] 50 mg PO QDAY #30 tablet 12/25/18 Unknown Rx amLODIPine [Norvasc] 10 mg PO DAILY #30 tablet 12/25/18 Unknown Rx hydrALAZINE [Apresoline TAB] 100 mg PO BID #60 tab 12/25/18 Unknown Rx levoFLOXacin [Levaquin TAB] 500 mg PO QDAY #5 tablet 12/25/18 Unknown Rx HYDROcodone/APAP 5-325 [Bonesteel 1 each PO Q6HR PRN #14 tablet 12/26/18 Unknown Rx 5/325] Ondansetron [Zofran Odt] 4 mg PO Q8HR PRN #14 tab.rapdis 12/26/18 Unknown Rx ED Physical Exam - General Limitations: No Limitations General appearance: alert, in no apparent distress - Head Head exam: Present: atraumatic, normocephalic, normal inspection - Eye Eye exam: Present: normal appearance - ENT ENT exam: Present: normal exam, normal orophraynx, mucous membranes moist - Neck Neck exam: Present: normal inspection, full ROM. Absent: tenderness, mening ismus, lymphadenopathy, thyromegaly - Respiratory Respiratory exam: Present: normal lung sounds bilaterally - Cardiovascular Cardiovascular Exam: Present: regular rate, normal rhythm, normal heart sounds - GI/Abdominal GI/Abdominal exam: Present: soft, normal bowel sounds. Absent: distended, tenderness, guarding, rebound, rigid - Extremities Exam Extremities exam: Present: normal inspection, normal capillary refill - Back Exam Back exam: Present: normal inspection, full ROM. Absent: CVA tenderness (R), CVA tenderness (L), muscle spasm, paraspinal tenderness - Neurological Exam Neurological exam: Present: alert, oriented X3, CN II-XII intact - Skin Skin exam: Present: warm, intact, normal color ED Course Vital Signs 12/26/18 12/26/18 12/26/18 19:24 20:45 21:24 Temperature 98.1 F 98.4 F Pulse Rate 91 H 76 Respiratory 18 16 16 Rate Blood Pressure 122/66 Blood Pressure 129/76 [Left] O2 Sat by Pulse 96 95 Oximetry ED Medical Decision Making - Lab Data Result diagrams: 12/26/18 19:44 12/26/18 19:34 - Medical Decision Making Patient is 58 years old female with history of end-stage renal disease on hemodialysis. Patient just had dialysis today. Patient was recently discharged from the hospital for pneumonia. Patient brought to the emergency room accompanied by her daughter stating that she is complaining of neck and lower back and left stump pain started today. Patient denied any fever, chills, nausea or vomiting. No chest pain, shortness of breath or cough. Patient is alert, oriented 4 in no acute distress. The patient had labs reviewed and is unremarkable except for elevated creatinine secondary to her chronic kidney disease. Patient received Bonesteel one tablet in the ER and stated that it helped her pain. I advised the patient and her daughter to follow with her primary care physician in the next 2-3 days and to return to the ER if her symptoms have not improved. Critical care attestation.: If time is entered above; I have spent that time in minutes in the direct care of this critically ill patient, excluding procedure time. ED Disposition Clinical Impression: Painful amputation stump Disposition: DC-01 TO HOME OR SELFCARE Is pt being admited?: No Condition: Stable Instructions: Chronic Pain (ED) Prescriptions: HYDROcodone/APAP 5-325 [Bonesteel 5/325] 1 each PO Q6HR PRN #14 tablet PRN Reason: Pain Ondansetron [Zofran Odt] 4 mg PO Q8HR PRN #14 tab.rapdis PRN Reason: Nausea And Vomiting Referrals: PRIMARY CARE, [Primary Care Provider] - 3-5 Days
[2018-12-26] MEDS ORDERED: NORCO 5/325 PO ONE (21:05)
[2018-12-26] MEDS ORDERED: ZOFRAN ODT PO ONE (21:05)
== END 2018-12-26 21:36 | disposition home or self-care (01) ==
LOC: ED 19:23
DX: T87.89 Other complications of amputation stump (principal); I12.0 Hypertensive chronic kidney disease with stage 5 chronic kidney disease or end stage renal disease; E11.22 Type 2 diabetes mellitus with diabetic chronic kidney disease; N18.6 End stage renal disease; Z99.2 Dependence on renal dialysis; Z93.0 Tracheostomy status; Z89.612 Acquired absence of left leg above knee; Z88.5 Allergy status to narcotic agent
CPT/HCPCS: 36415; 80048; 80076; 82805; 85025; 99283; Q0162